=== PATIENT | male | born 1935 | race Hispanic/Latino ===

== ENCOUNTER 2022-08-14 19:18 | Emergency (ER) | payer MEDICARE ==
[~2022-08-14] VITALS: Ht 188 cm; Wt 87.1 kg
[2022-08-14 20:25] LABS: BASOPHILS % 0.4 % (0.0-1.0); EOSINOPHILS # (AUTO) 0.1 (0.0-0.4); EOSINOPHILS % 1.3 % (0.0-6.0); HEMATOCRIT 37.6 % (38.2-49.6); HEMOGLOBIN 12.4 g/dL (14.0-18.0); LYMPHOCYTES # (AUTO) 1.9 (1.0-3.2); LYMPHOCYTES % 22.5 % (18.0-39.1); MEAN CORPUSCULAR HEMOGLOBIN 29.2 pg (28-32); MEAN CORPUSCULAR VOLUME 88.5 fL (81-99); MONOCYTES # (AUTO) 1.2 (0.2-0.8); MONOCYTES % 14.1 % (4.4-11.3); NEUTROPHILS # (AUTO) 5.1 (2.1-6.9); PLATELET COUNT 259 x10e3/uL (140-360); RED BLOOD COUNT 4.25 x10e6/uL (4.3-5.7)
[2022-08-14 20:44] LABS: ALBUMIN 3.7 g/dL (3.5-5.0); ANION GAP 18.2 mmol/L (8-16); CALCIUM 9.1 mg/dL (8.4-10.2); CREATININE, SERUM 1.11 mg/dL (0.72-1.25); POTASSIUM 4.2 mmol/L (3.5-5.1)
[2022-08-14 23:02] VITALS: BP 112/69; PULSE 84; O2SAT 97
== END 2022-08-14 22:56 | disposition home or self-care (01) ==
LOC: ER 19:23
DX: M54.6 Pain in thoracic spine (principal); M54.50 Low back pain, unspecified; M79.18 Myalgia, other site
CPT/HCPCS: 36415; 71045; 80053; 84484; 85025; 93005; 99284